=== PATIENT | male | born 1950 | race Caucasian/White ===

== ENCOUNTER 2017-03-23 05:07 | Inpatient (IN) | payer OTHER ==
[~2017-03-23] VITALS: Ht 177.8 cm; Wt 117.0 kg
[~2017-03-23 05:07] MED LIST: ASPIRIN EC81 M1 PO; COLACE100 M1 PO; DICLOFENAC SODI75 M2 PO; ELIQUIS2.5 M1 PO; LIPITOR10 M1 PO; LOVENOX40 MG/0.1 SC; SAW PALMETTO80 MG PO; SYNTHROID75 MCG PO; TOPROL XL100 M1 PO; TOPROL XL25 M1 PO; VICODIN 5-3001 EACH PO; VITAMIN B-121000 MC3 PO; VITAMIN D31000 UNI1 PO
--- NOTE | 2017-03-23 09:38 | Operative Report ---
Operative/Inv Procedure Report Surgery Date: 03/23/17 Name of Procedure: Right total knee arthroplasty Pre-Operative Diagnosis: Right knee primary osteoarthritis Post-Operative Diagnosis: Same with final pathology pending Estimated Blood Loss: less than 50ml Surgeon/Adjuster Leader: DAMIEN LOWE,Noam NAVARRO Anesthesia: laryngeal mask airway Implants: [place] triathlon total knee system-size 5 femur, size 5 tibia, 9 mm cruciate retaining polyethylene, 33 patella Drains: None Specimens: Femoral, tibial, patellar bone Microbiology: Urine Tourniquet: 54 minutes Complications: None Condition: Stable Operative Indication: Patient is a 66-year-old man with a history of bilateral knee osteoarthritis. He had been treated conservatively for a long period of time with early success but symptoms continued to progressively worsen and conservative treatments started to provide only short-term relief. His activities were compromised by the knee pain. X-rays revealed severe end-stage degenerative changes area he underwent left total knee arthroplasty in August. He wished to proceed with total knee arthroplasty for his right side. Risks, benefits and expectations of the procedure were discussed which included but were not limited to persistent knee pain, need for subsequent surgery, infection, DVT, injury to blood vessel or nerve, and anesthesia risks. Patient does have a history of previous DVT and PE from a remote procedure/Injury and therefore the recommendation for preoperative Lovenox was given the day before. This will be followed by the standard anticoagulation postoperatively as well. Due to the fact he did have a previous DVT/PE, he was not given the TXA protocol. The TXA protocol was not used at the last surgical procedure involving his left knee either. Operative/Procedure Note Note: Patient was brought to the operating room and transferred to the operating table. Once under appropriate anesthesia the right lower extremity was prepped and draped in standard fashion. Preoperative IV antibiotics were given prophylactically. Leg was elevated exsanguinated and tourniquet was inflated to 300 mm of pressure. Standard anterior incision was made for anticipated medial parapatellar approach to the knee. Incision was taken down sharply to the underlying retinaculum. A medial retinacular approach was used with a minimal extension into the quadriceps tendon. Large osteophytes were visualized along the medial and lateral aspect of the femur as well as the medial tibia and patella. Remnants of the medial and lateral meniscal tissues were excised anteriorly. There was no ACL. I used a drill to enter the intramedullary canal for the intramedullary guide for the distal femoral cut. This cut was made at a 6 valgus orientation. Soft tissues were protected as the distal femoral cut was made. Femur was incised was size 5. Size 5 cutting block was pinned in place and the 4 cuts were made. I was satisfied with the preparation of the femur. I turned my attention to the tibia. I used the external tibial alignment guide and pin the cutting block in position for a neutral cut from medial to lateral and reproducing patient's posterior slow-paced on preoperative templating and intraoperative measurements. Soft tissues were protected posteriorly medially and laterally. The cut was made. The tibia was sized to a size 5. I then did a trial reduction with a size 5 tibia size 5 femur and a 9 mm insert area soft tissue balancing was confirmed. Prior to the balancing, the medial compartment was tighter than the lateral compartment. I then measured the patella and cut the appropriate thickness and replaced it with a size 33 patella. The 3 lug holes were drilled and the knee was taken through range of motion. Good patellofemoral tracking. I then removed all trial components and finished preparation of the tibia. The appropriate sized tibial punch was used with the appropriate rotation based on my marked rotation of the trial. The 2 lug holes were drilled in the femur to prior to removal of that trial. After the tibial punch was completed all is was removed from the knee and copious irrigation the knee followed. I used the anterior chamfer bone to plug the distal femoral hole to prevent and minimize risk for hemarthrosis postoperatively. After copious irrigation was completed and the cement was being mixed on the back table., Cement was applied to the dry clean bony surfaces of the tibia. The size 5 tibial component was impacted in place and excess cement was removed with curettes. Cement was applied to the dry clean bony surfaces of distal femur. The size 5 femur was impacted in place and excess cement was removed with curettes. A 9 mm insert was put in place and the knee was taken out to full extension which helped to pressurize the cement mantle. Cement was applied to the dry clean bony surfaces of the of the patella and the size 33 patella was impacted in place and excess cement was removed with a knife. As the cement was hardening I did appear articular pericapsular injection of a cocktail which included ropivacaine with epinephrine and Toradol for postoperative pain and inflammation management. Once cement was hardening took the knee through range of motion. I was satisfied with the soft tissue balancing with the 9 mm insert. The trial insert was removed and the tibial tray was copiously irrigated. A major was no remaining soft tissue, bone fragments or cement fragments within the tibial tray. I then impacted the definitive size 9 mm cruciate retaining polyethylene in place and the locking mechanism was confirmed. Copious irrigation the knee followed. Tourniquet was deflated at 54 minutes. Patellar tracking was very good no need for a patellar release. Copious irrigation irrigation followed every level of closure. The retinacular incision and minimal extension into the quadriceps was closed with interrupted #1 Vicryl sutures. Subcutaneous tissues closed in 2 layers using 2- 0 Vicryl suture and skin was closed with a running 3-0 Vicryl suture with the knee in flexion. Appropriate just his were applied and patient was awakened and taken to recovery room in good condition. Blood loss was less than 50 mL Discharge Disposition: PACU
[2017-03-23 11:38] VITALS: BP 130/68
[2017-03-23 11:40] VITALS: BP 130/68
--- NOTE | 2017-03-23 12:14 | PN- Orthopedic ---
Subjective Subjective: The patient was seen this afternoon postoperatively. He reports that his pain is under adequate control and has no other complaints at the current time. Objective Vital Signs and I&Os Vital Signs Date Time Temp Pulse Resp B/P B/P Pulse O2 O2 Flow FiO2 Mean Ox Delivery Rate 03/23 1138 98.2 88 20 130/68 92 Nasal 2.0L Cannula Physical Exam: Gen.: Alert and in no obvious distress Skin: Warm and dry Cardiac: S1-S2 regular Pulmonary: Bilateral breath sounds are equal and slightly decreased at bases. Extremities: Bilateral lower extremities are warm without calf tenderness or significant edema. Gross motor and sensory are intact. Right knee surgical dressing is clean, dry, and intact. This On-Q pain pump in place. Assessment/Plan Assessment/Plan Assessment: 66-year-old male status post right total knee arthroplasty. Postoperative the patient is progressing as expected and his pain is under adequate control. Plan: Out of bed with physical therapy patient is weightbearing as tolerated Strict I's and O's IV hydration and keep Faulkner catheter until the morning Continue current pain regiment but change Vicodin to Percocet GI and DVT prophylaxis Resume home medications 1 dose of postoperative prophylactic antibiotic Incentive spirometry Core Measures/Miscellaneous Venous Thromboembolism VTE Risk Factors: Age > 40, Obesity, Previous VTE, Surgery VTE Contraindications: No Contraindications VTE Diagnosis: No Beta Asif Is Beta Asif a Home Med? Yes If Yes, Was This Ordered Today? Yes Antibiotics Is Patient on Antibiotics? Yes If Yes: infection
--- NOTE | 2017-03-23 14:10 | NUR ---
PT ARRIVED TO FLOOR VIA STRETCHER, AO, 3LNC, VSS, NO C/O PAIN, +MOVEMENT IN RLE C/O RLE NUMBNESS, WILLIAM IN PLACE, IV PATENT WITH FLUIDS RUNNING, ADMISSION ASSESSMENT COMPLETE, ICE PACKS LABELED AND PLACED IN FREEZER, ORIENTED TO ROOM AND CALL LIGHT, MEAL ORDERED, TOLERATING PO INTAKE. PT IN BED W/ CALL LARSEN WITHIN REACH.
[2017-03-23 14:30] VITALS: BP 100/60
--- NOTE | 2017-03-23 14:31 | Patient Discharge Instructions ---
Discharge Instructions General Discharge Information You were seen/treated for: Right knee pain related to unilateral primary osteoarthritis You had these procedures: Right total knee replacement Watch for these problems: Increasing pain despite the use of pain medication. Increasing redness, warmth, swelling. Drainage of any type from incision. Inability to bear weight on operative leg. Persistent nausea and vomitting. Fever greater than 101.5 degrees. Do not soak the wound: Yes No bath, but you may shower: Yes Other wound care: Keep wound clean and dry. Your dressing will be changed on the second day following your surgery by nursing. Daily dry dressing changes recommend thereafter. No ointments or lotions of any type on or near incision at any time. No exceptions. Special Instructions: Continue eliquis post operatively unless otherwise indicated by Dr. Martinez Diet Continue normal diet: Yes Recommended Diet: Regular Acute Coronary Syndrome Inclusion Criteria At DC or during hospital stay patient has or had the following: ACS DIAGNOSIS No Discharge Core Measures Meds if any: Prescribed or Continued at Discharge Meds if any: NOT Prescribed or Continued at Discharge Congestive Heart Failure Inclusion Criteria At DC or during hospital stay patient has or had the following: CHF DIAGNOSIS No Discharge Core Measures Meds if any: Prescribed or Continued at Discharge Meds if any: NOT Prescribed or Continued at Discharge Cerebrovascular accident Inclusion Criteria At DC or during hospital stay patient has or had the following: CVA/TIA Diagnosis No Discharge Core Measures Meds if any: Prescribed or Continued at Discharge Meds if any: NOT Prescribed or Continued at Discharge Venous thromboembolism Inclusion Criteria VTE Diagnosis No VTE Type NONE VTE Confirmed by (Test) NONE Discharge Core Measures - Per Current guidelines, there needs to be overlap - treatment for the first 5 days of Warfarin therapy. - If discharged on Warfarin prior to 5 days of - overlap therapy, the patient will need to be - assessed for post discharge needs including - *Post discharge parental anticoagulation - *Warfarin and/or parental anticoagulation education - *Follow up date to check INR post discharge At least 5 days overlap therapy as Inpatient No Meds if any: Prescribed or Continued at Discharge Note: Overlap Therapy is Warfarin and Anticoagulant Meds if any: NOT Prescribed or Continued at Discharge - *Follow up date to check INR post discharge At least 5 days overlap therapy as Inpatient No Meds if any: Prescribed or Continued at Discharge Note: Overlap Therapy is Warfarin and Anticoagulant Meds if any: NOT Prescribed or Continued at Discharge
--- NOTE | 2017-03-23 14:35 | Surgical Discharge Summary ---
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 Home Who Do You Live With? Spouse Services at Home: NONE What is Your Primary Language? Uzbek Review of Systems: See H&P Hospital Course Course Attending Physician: DAMIEN LOWE,RAMON Primary Care Physician: MU PORTILLO MD Hospital Course: Patient was admitted to the hospital on 03/23/2017 for an elective total joint replacement. The procedure was tolerated well and the patient was transferred to a general surgical floor. There, the patient's diet was advanced and tolerated, the patient voided spontaneously, and was evaluated and treated by physical therapy. At the time of hospital discharge, vital signs were stable and within normal limits, neurovascular status was intact, and pain was controlled with the use of oral pain medication. Allergies: Coded Allergies: acetaminophen (From VICODIN) (ITCHING 03/13/17) alcohol (BEER- VIOLENTLY ILL 08/29/16) aspirin (UPSET STOMACH 08/29/16) codeine (RASH 08/29/16) hydrocodone (From VICODIN) (ITCHING 03/13/17) oxycodone (RASH 08/29/16) Disposition Summary Disposition Principal Diagnosis: Right knee unilateral primary osteoarthritis Additional Diagnosis: None Discharge Disposition: home health services Discharge Instructions General Discharge Information Code Status: Full Code Patient's Diet: Regular, advance as tolerated Patient's Activity: WBAT Follow-Up Instructions/Appts: Follow up with Dr. Martinez in 2 weeks from date of surgery. Please call his office to arrange and or confirm this appointment. Medications at Discharge Discharge Medications: Continue taking these medications: Cyanocobalamin (Vitamin B-12) 1,000 MCG TABLET 1 Tablet ORAL DAILY Comments: NOT GIVEN IN HOSPITAL Cholecalciferol (Vitamin D3) (Vitamin D3) 1,000 UNIT CAPSULE 1 Capsule ORAL DAILY Comments: NOT GIVEN IN HOSPITAL Atorvastatin Calcium (Lipitor) 10 MG TABLET 1 Tablet ORAL DAILY Comments: Last Taken: 03/25/17 Time: 1700 Levothyroxine Sodium (Synthroid) 75 MCG TABLET 1 Tablet ORAL DAILY Comments: Last Taken: 03/25/17 Time: 0600AM Aspirin (Ecotrin*) 81 MG TABLET.DR 1 Tablet ORAL DAILY Comments: NOT GIVEN IN HOSPITAL Saw [place] (Saw [place]) (Unknown Strength) CAPSULE 2 Capsule ORAL DAILY Comments: NOT GIVEN IN HOSPITAL Apixaban (Eliquis) 2.5 MG TABLET 1 Tablet ORAL TWICE DAILY Qty = 60 Comments: Last Taken: 03/25/2017 Time: 0800AM Metoprolol Succ XL (Toprol XL) 25 MG TAB 1 Tablet ORAL DAILY Start taking the following new medications: Oxycodone HCl/Acetaminophen (Percocet 5-325 MG Tablet) 5 MG-325 MG TABLET 1-2 Tablet ORAL EVERY 4 HOURS NEEDED as needed for PAIN Qty = 30 No Refills Comments: Last Taken:03/25/17 Time:630AM
[2017-03-23 16:00] VITALS: BP 100/62
[2017-03-23 18:27] VITALS: BP 102/60
[2017-03-23 19:53] VITALS: BP 98/62
[2017-03-24] VITALS: BP 112/60
[2017-03-24 04:00] VITALS: BP 120/74
--- NOTE | 2017-03-24 08:17 | PN- Orthopedic ---
See Addendum Subjective Subjective: Patient has no pain. He has been up and ambulatory several times without difficulty. He is voiding without difficulty. His appetite is good. He feels well, no fever or flulike illness Objective Vital Signs and I&Os Vital Signs Date Time Temp Pulse Resp B/P B/P Pulse O2 O2 Flow FiO2 Mean Ox Delivery Rate 03/24 0400 98.0 81 20 120/74 97 Room Air 03/24 0000 97.9 60 18 112/60 94 Room Air 03/23 1953 98.1 69 20 98/62 98 Room Air 03/23 1827 97.9 77 20 102/60 94 Room Air 03/23 1600 97.2 72 20 100/62 92 Room Air 03/23 1430 97.5 80 20 100/60 95 Room Air 03/23 1217 96 Nasal 3.0L Cannula 03/23 1140 98.2 88 20 130/68 92 Nasal 2.0L Cannula 03/23 1138 98.2 88 20 130/68 92 Nasal 2.0L Cannula Intake & Output 03/24 1600 03/24 0800 03/24 0000 03/23 1600 03/23 0800 03/23 0000 Intake Total 840 500 Output Total 300 250 100 Balance 540 -250 400 Intake, IV 600 300 Intake, Oral 240 200 Number 0 Bowel Movements Output, Urine 300 250 100 Patient 258 lb Weight Weight Reported by Patient Measurement Method Physical Exam: Well-developed well-nourished no apparent distress. HEENT: Atraumatic, extraocular motion intact Neck: Supple, no lymphadenopathy Respiratory: No respiratory distress Extremities: No edema RIGHT lower extremity dressing in place, mild blood staining Range of motion is 0-80. On Q in place Compression wrap in place. ALPS in place Neurovascularly intact distally Bilateral calves are supple, nontender. Neuro: Alert and oriented x3 Psych: Mood affect normal, normal memory normal judgment. Skin: Warm and dry, no rash on exposed skin Results Last 48 Hours of Labs: Laboratory Tests 03/24 0710 Chemistry Sodium Pending Potassium Pending Chloride Pending Carbon Dioxide Pending Anion Gap Pending BUN Pending Creatinine Pending BUN/Creatinine Ratio Pending Hematology CBC w Diff Pending WBC Pending RBC Pending Hgb Pending Hct Pending MCV Pending MCH Pending RDW Pending Plt Count Pending MPV Pending PUBS MCHC Pending Assessment/Plan Assessment/Plan 66-year-old male postoperative day #1 status post right total knee arthroplasty. Plan: Out of bed with physical therapy. patient is weightbearing as tolerated DC IV fluids, regular diet Percocet for pain Continue on Q Follow morning labs GI and DVT prophylaxis, eliquis Dressing change tomorrow Continue home medications Plan for discharge to home tomorrow with VNA services Core Measures/Miscellaneous Venous Thromboembolism VTE Risk Factors: Age > 40, Obesity, Previous VTE, Surgery VTE Contraindications: No Contraindications VTE Diagnosis: No Beta Asif Is Beta Asif a Home Med? Yes If Yes, Was This Ordered Today? Yes Antibiotics Is Patient on Antibiotics? Yes If Yes: infection
[2017-03-24] MEDS ORDERED: PERCOCET 5-3251 EACH PO (08:19)
[2017-03-24 08:40] LABS: ABSOLUTE BASOPHIL COUNT 0 /CUMM (0.0-0.2); ABSOLUTE EOSINOPHIL COUNT 0.1 /CUMM (0.0-0.7); ABSOLUTE GRANULOCYTE CT 6.9 /CUMM (1.4-6.5); ABSOLUTE LYMPH COUNT 1.1 /CUMM (1.2-3.4); ABSOLUTE MONOCYTE COUNT 0.8 /CUMM (0.10-0.60); BASOPHIL % 0.2 % (0.0-2.0); EOSINOPHIL % 0.8 % (0-5); GRANULOCYTE % 77.3 % (42.2-75.2); HEMATOCRIT 40.8 % (42-52); MEAN CORPUSCULAR HGB 31.6 PG (27.0-31.0); MEAN CORPUSCULAR HGB CONC 33.6 G/DL (33.0-37.0); MEAN CORPUSCULAR VOLUME 93.9 FL (80.0-94.0); MEAN PLATELET VOLUME 7.4 FL (7.4-10.4); PLATELET COUNT 164 /CUMM (130-400); RBC DISTRIBUTION WIDTH 13.5 % (11.5-14.5); RED BLOOD CELL CT 4.35 /CUMM (4.70-6.10); WHITE BLOOD CELL COUNT 8.9 /CUMM (4.8-10.8)
[2017-03-24 09:00] VITALS: BP 120/74
[2017-03-24 14:32] VITALS: BP 118/80
[2017-03-24 16:00] VITALS: BP 120/70
[2017-03-24 23:02] VITALS: BP 124/70
[2017-03-25 06:30] VITALS: BP 126/64
[2017-03-25 08:18] LABS: ABSOLUTE BASOPHIL COUNT 0 /CUMM (0.0-0.2); ABSOLUTE EOSINOPHIL COUNT 0 /CUMM (0.0-0.7); ABSOLUTE GRANULOCYTE CT 6.8 /CUMM (1.4-6.5); ABSOLUTE LYMPH COUNT 0.9 /CUMM (1.2-3.4); ABSOLUTE MONOCYTE COUNT 1.1 /CUMM (0.10-0.60); BASOPHIL % 0.2 % (0.0-2.0); EOSINOPHIL % 0.2 % (0-5); HEMATOCRIT 38.1 % (42-52); MEAN CORPUSCULAR HGB 31.8 PG (27.0-31.0); MEAN CORPUSCULAR HGB CONC 33.5 G/DL (33.0-37.0); MEAN CORPUSCULAR VOLUME 94.7 FL (80.0-94.0); MEAN PLATELET VOLUME 7.5 FL (7.4-10.4); PLATELET COUNT 173 /CUMM (130-400); RBC DISTRIBUTION WIDTH 13.1 % (11.5-14.5); RED BLOOD CELL CT 4.02 /CUMM (4.70-6.10); WHITE BLOOD CELL COUNT 8.8 /CUMM (4.8-10.8)
--- NOTE | 2017-03-25 08:48 | RADIOLOGY REPORT ---
EXAMINATION: XR KNEE, RIGHT CLINICAL INFORMATION: Status post right TKA COMPARISON: None TECHNIQUE: Two views of the right knee. FINDINGS: There is a total right knee arthroplasty with the distal femoral component articulating appropriately with the tibial plateau and patellar components. No periprosthetic lucency or fracture. Diffuse prominent soft tissue swelling.. IMPRESSION: Appropriate alignment of the right total knee arthroplasty.
--- NOTE | 2017-03-25 08:59 | PN- Orthopedic ---
Subjective Subjective: pain well controlled w meds. OOB with PT ambulating, feels well. wants to dc home today. no other complaints, denies cp/sob/n/v/f/c Objective Vital Signs and I&Os Vital Signs Date Time Temp Pulse Resp B/P B/P Pulse O2 O2 Flow FiO2 Mean Ox Delivery Rate 03/25 0630 99.6 93 18 126/64 96 Room Air 03/25 0001 99.0 03/24 2302 100.5 90 18 124/70 94 Room Air 03/24 1835 99.8 03/24 1600 99.2 83 20 120/70 97 Room Air 03/24 1432 98.0 81 20 118/80 94 Room Air 03/24 0905 81 120/74 03/24 0900 120/74 Intake & Output 03/25 1600 03/25 0800 03/25 0000 03/24 1600 03/24 0800 03/24 0000 Intake Total 200 300 840 Output Total 100 300 300 250 Balance 100 300 -300 540 -250 Intake, IV 600 Intake, Oral 200 300 240 Number 2 Bowel Movements Output, Urine 100 300 300 250 Physical Exam: GEN: NAD CARD: s1s2 rrr PULM: ctab ABD: soft nt EXT: R knee dressing changed, dried bloody staining on dsg, some steris off with overlying dressing. incision clean, no erythema, + edema at knee. gross sensate and motor intact. +dorsi/plantar flexion with 5/5 strength. +DP/PT pulses. re-dressed. Assessment/Plan Assessment/Plan A: 66M POD2 sp R TKR, stable, w appropriate postop pain. P: OOB, WBAT, PT DC planning, dispo per PT recs eliquis prn pain meds labs pdg will dw attending Core Measures/Miscellaneous Venous Thromboembolism VTE Risk Factors: Age > 40, Obesity, Previous VTE, Surgery VTE Contraindications: No Contraindications VTE Diagnosis: No Beta Asif Is Beta Asif a Home Med? Yes If Yes, Was This Ordered Today? Yes Antibiotics Is Patient on Antibiotics? Yes If Yes: infection
[2017-03-25 09:02] VITALS: BP 130/68
== END 2017-03-25 13:54 | disposition home health service (06) | DRG 470 ==
LOC: SDA 05:07 → ENRESERV 10:13 → ENTRNSPT 11:05 → EDTRNSPTSTS 11:15 → 2NA 11:25 → CMPTRNSPT 11:45 → 2NA 03-25 13:54
PROVIDERS: Physician Assistant; Physician Assistant Surgical; ADMIT Orthopaedic Surgery
PROC: 0SRC0J9 Replacement of Right Knee Joint with Synthetic Substitute, Cemented, Open Approach (ICD-10-PCS; principal; 2017-03-23)
PROC: 3E0T3CZ (ICD-10-PCS; 2017-03-23)
DX: M17.11 Unilateral primary osteoarthritis, right knee (principal); I69.354 Hemiplegia and hemiparesis following cerebral infarction affecting left non-dominant side; I10 Essential (primary) hypertension; I48.2 Chronic atrial fibrillation; E78.00 Pure hypercholesterolemia, unspecified; E03.9 Hypothyroidism, unspecified; Z86.718 Personal history of other venous thrombosis and embolism; Z86.711 Personal history of pulmonary embolism; E78.5 Hyperlipidemia, unspecified; E66.9 Obesity, unspecified; Z68.37 Body mass index [BMI] 37.0-37.9, adult; G47.33 Obstructive sleep apnea (adult) (pediatric); F17.290 Nicotine dependence, other tobacco product, uncomplicated
CPT/HCPCS: 2NASP; 73560-RT; 82436; 87086; 88305; 97110-GO; 97116-GO; 97161-GP; 97530-GO; C1713; J0131; J0171; J1885; J2405; J2795; J3370; J7040